=== PATIENT | female | born 1970 | race Caucasian/White ===

== ENCOUNTER 2017-08-15 19:43 | Emergency (ER) | payer SELFPAY ==
[~2017-08-15] VITALS: Ht 170.2 cm; Wt 61.2 kg
[2017-08-15 22:12] VITALS: BP 138/77
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
--- NOTE | 2017-08-15 22:20 | NUR ---
PT TRANSFERRED TO ER BED 4. PT WITH ALL BELONGINGS
--- NOTE | 2017-08-15 22:27 | NUR ---
DR. RICHARDS AT BEDSIDE FOR EVAL.
== END 2017-08-15 22:50 | disposition home or self-care (01) ==
LOC: ER 19:46
DX: M25.512 Pain in left shoulder (principal); Y04.8XXA Assault by other bodily force, initial encounter; Y93.89 Activity, other specified; Y92.89 Other specified places as the place of occurrence of the external cause; Y99.8 Other external cause status
CPT/HCPCS: 99281; A4606; Z7610; Z7502